=== PATIENT | female | born 1990 | race Caucasian/White ===

== ENCOUNTER 2021-04-07 11:51 | Emergency (ER) | payer OTHER ==
[~2021-04-07] VITALS: Ht 152.4 cm; Wt 78.0 kg
[~2021-04-07 11:51] MED LIST: KEPPRA250 MG; PRENATAL1 TAB; TENCON TABLET1 TAB PO
== END 2021-04-07 17:03 | disposition home or self-care (01) ==
LOC: ER 11:51
DX: O26.891 Other specified pregnancy related conditions, first trimester (principal); R10.2 Pelvic and perineal pain; O26.851 Spotting complicating pregnancy, first trimester; O36.80X0 Pregnancy with inconclusive fetal viability, not applicable or unspecified; Z3A.01 Less than 8 weeks gestation of pregnancy